=== PATIENT | female | born 1980 | race Caucasian/White ===

== ENCOUNTER 2020-09-18 11:26 | Emergency (ER) | payer OTHER, SELFPAY ==
[2020-09-18] VITALS (7 sets, daily range): BP systolic 123–150; BP diastolic 69–101; PULSE 72–98; RESP 16–18; TEMP 35.5; O2SAT 99–100
--- NOTE | ~2020-09-18 | US_ITS ---
EXAMINATION: US pelvic complete w TV DATE: 09/18/2020 13:06 INDICATION: Vaginal bleeding and right adnexal pain TECHNIQUE: Multiple transabdominal and endovaginal sonographic images of the pelvis were obtained. COMPARISON: None. FINDINGS: The uterus measures 9.3 x 6.3 x 4.9 cm. The endometrial complex measures 8 mm in thickness. 1.8 cm h ypoechoic lesion in the posterior fundus most likely representing a small uterine fibroid. 5 mm anech oic nabothian cysts at the cervix. 2-3 mm hyperechoic focus along the posterior margin of the endocer vical canal which could represent clot or calcification. The right ovary measures 2.3 x 1.8 x 2.2 cm. The left ovary measures 1.9 x 1.9 x 1.6 cm. Vascular flow identified in both ovaries on color Dopple r. There is no free fluid in the pelvis. IMPRESSION: 1. 1.8 cm hypoechoic likely fibroid in the posterior uterine fundus. 2. Small nabothian cyst at the cervix and nonspecific 2-3 mm hyperechoic focus along the endocervical canal potentially representing small amount of clot or calcification. Reviewed, dictated and finalized at location A. IMPRESSION: 1. 1.8 cm hypoechoic likely fibroid in the posterior uterine fundus. 2. Small nabothian cyst at the cervix and nonspecific 2-3 mm hyperechoic focus along the endocervical canal potentially representing small amount of clot or c alcification.
[2020-09-18] MEDS: SODIUM CHLORIDE 0.9% IV 1,000 ML 999 ML IV CONT (12:14)
--- NOTE | 2020-09-18 12:14 | ED.FEMALEGU ---
HPI - Female Genitourinary General Chief complaint: Vaginal Bleeding Stated complaint: vaginal bleeding Time Seen by Provider: 09/18/20 11:39 History of Present Illness HPI Narrative: Patient is a 40-year-old female who presents to the ER with vaginal bleeding. She is currently on day 3 of her period. She reports she typically has heavy periods but today is much worse. She is soaking through a super tampon every 45 minutes and also passing large clots from her vagina. No chest pain or shortness of breath. No loss consciousness. She is not having any dizziness. Does not take blood thinners. Patient reports right adnexal discomfort going to her back. Concerned she may have a cyst. Related Data Allergies Allergy/AdvReac Type Severity Reaction Status Date / Time No Known Allergies Allergy Verified 09/18/20 11:38 Review of Systems Review of Systems: All systems reviewed & are unremarkable except as noted in HPI and below Constitutional: Constitutional: Denies chills and Denies fatigue Respiratory: Respiratory: Denies cough and Denies dyspnea Gastrointestinal: Gastrointestinal: Denies abdominal pain, Denies diarrhea, Denies nausea and Denies vomiting Genitourinary: Genitourinary: Reports abnormal vaginal bleeding, Denies nocturia, Denies dysuria, Reports pelvic pain and Denies vaginal discharge Musculoskeletal: Musculoskeletal: Reports back pain and Denies muscle cramps PMFSH Past Medical History Medical History (Updated 09/18/20 @ 14:25 by Yehuda Jacinto MD) PCOS (polycystic ovarian syndrome) Surgical History Surgical History (Updated 09/18/20 @ 12:20 by Yehuda Jacinto MD) No pertinent past surgical history Social History Social History (Updated 09/18/20 @ 12:20 by Yehuda Jacinto MD) Smoking status: Never smoker Exam Narrative: Exam Narrative: GENERAL: Well-appearing, well-nourished, and in no acute distress. HEAD: Normocephalic, atraumatic. ENT: Mucous membranes moist. CHEST: Clear to auscultation. No respiratory distress. HEART: Regular rate and rhythm. Normal peripheral pulses. ABDOMEN: Soft, nontender, nondistended. : Normal external genitalia. Vaginal vault with small amount of dark blood without clot. Redundant tissue obscures visualization of cervix. No vaginal discharge. EXTREMITIES: Normal range of motion. No edema. NEURO: Alert and oriented x3. Course Course Emergency Course: Patient informed of results. Likely having heavier bleeding due to her fibroid. Recommend follow-up with implementation services analyst and we will provide her with the name of our on-call physician. Vital Signs Vital signs: Vital Signs Temperature 96 F L 09/18/20 11:34 Pulse Rate 89 09/18/20 11:34 Respiratory Rate 16 09/18/20 11:34 Blood Pressure 142/82 H 09/18/20 11:34 Pulse Oximetry 100 09/18/20 11:34 Temperature 96 F L 09/18/20 11:34 Pulse Rate 81 09/18/20 14:10 Respiratory Rate 18 09/18/20 14:10 Blood Pressure 139/87 09/18/20 14:10 Pulse Oximetry 100 09/18/20 14:10 MDM - Female Genitourinary Lab Data Result diagrams: 09/18/20 12:16 09/18/20 12:16 Labs: Lab Results 09/18/20 09/18/20 Range/Units 12:16 12:16 WBC 8.1 (4.5-10.0) K/mm3 RBC 4.45 (4.2-5.4) M/mm3 Hgb 13.1 (12.0-15.0) g/dL Hct 39.6 (37.0-47.0) % MCV 89.0 (80-100) fl MCH 29.4 (26-34) pg MCHC 33.1 (32-36) g/dl RDW 13.0 (11.5-14.5) % Plt Count 268 (150-375) k/mm3 MPV 8.2 (7.4-10.4) fl Immature Gran % (Auto) 0.2 (0-0.5) % Neut % (Auto) 62.2 (45.5-73.1) % Lymph % (Auto) 28.9 (18.3-44.2) % Brooke % (Auto) 6.6 (2.6-8.5) % Eos % (Auto) 1.6 (0-4.4) % Baso % (Auto) 0.5 (0.2-1.2) % Lymph # (Auto) 2.33 (0.9-3.2) K/mm3 Brooke # (Auto) 0.5 (0.1-0.6) K/mm3 Eos # (Auto) 0.1 (0-0.3) K/mm3 Baso # (Auto) 0.0 (0.0-0.1) K/mm3 Abs Immat Gran (auto) 0.02 (0.00-0.031) K/mm3 Absolute Neuts (auto) 5.0 (1.3-6.7) K
[2020-09-18] MEDS: KETOROLAC 30 MG/ML VIAL (*BKC) IV PUSH (12:15)
[2020-09-18 12:26] LABS: Basophils Percent Auto 0.5 % (0.2-1.2); Eosinophils Absolute Auto 0.1 K/mm3 (0-0.3); Eosinophils Percent Auto 1.6 % (0-4.4); Hematocrit 39.6 % (37.0-47.0); Hemoglobin 13.1 g/dL (12.0-15.0); Immature Granulocyte Absolute 0.02 K/mm3 (0.00-0.031); Immature Granulocyte Percent A 0.2 % (0-0.5); Lymphocytes Absolute Auto 2.33 K/mm3 (0.9-3.2); Lymphocytes Percent Auto 28.9 % (18.3-44.2); Mean Corpuscular HGB Conc 33.1 g/dl (32-36); Mean Corpuscular Hemoglobin 29.4 pg (26-34); Mean Platelet Volume 8.2 fl (7.4-10.4); Monocytes Absolute Auto 0.5 K/mm3 (0.1-0.6); Monocytes Percent Auto 6.6 % (2.6-8.5); Neutrophils Percent Auto 62.2 % (45.5-73.1); Platelet Count Result 268 k/mm3 (150-375); Red Blood Count 4.45 M/mm3 (4.2-5.4); White Blood Count 8.1 K/mm3 (4.5-10.0)
[2020-09-18 12:42] LABS: Anion Gap 3 mmol/L (8-16); Blood Urea Nitrogen 11 mg/dL (7-17); Calcium 8.6 mg/dL (8.4-10.2); Carbon Dioxide 28 mmol/L (22-30); Chloride 108 mmol/L (98-107); Estimated CRCL calculation 135 ml/min; Estimated Glomerular Filt Rate > 60; Glucose 103 mg/dL (65-105); Potassium 4.3 mmol/L (3.4-5.0); Sodium 139 mmol/L (137-145)
--- NOTE | 2020-09-18 12:43 | PC.NURSE ---
Pt in ultrasound.
--- NOTE | 2020-09-18 14:10 | PC.NURSE ---
RN assisting with pelvic exam.
== END 2020-09-18 15:11 | disposition home or self-care (01) ==
PROVIDERS: Emergency Provider Emergency Medicine; PCP Family Medicine
DX: D25.9 Leiomyoma of uterus, unspecified (principal); N92.0 Excessive and frequent menstruation with regular cycle; N88.8 Other specified noninflammatory disorders of cervix uteri
CPT/HCPCS: 36415; 76830; 76856; 80048; 85025; 96361; 96374; 99284; J1885; J7030

== ENCOUNTER → 2020-10-20 02:08 | Outpatient (CLI) | payer OTHER, SELFPAY ==
[2020-10-20 19:23] LABS: SARS-CoV-2 RNA PCR Negative
== END ==
PROVIDERS: Student in an Organized Health Care Education/Training Program; PCP Family Medicine; Visit Provider Obstetrics & Gynecology
DX: Z01.812 Encounter for preprocedural laboratory examination (principal); Z20.822 Contact with and (suspected) exposure to COVID-19
CPT/HCPCS: C9803; U0003; U0005

== ENCOUNTER 2020-10-20 08:57 | Outpatient (CLI) | payer OTHER, SELFPAY ==
--- NOTE | 2020-10-20 13:15 | ECG_ITS ---
Measurements Intervals [place] Rate: 74 P: 34 KS: 161 QRS: 23 QRSD: 91 T: 13 QT: 364 QTc: 404 Interpretive Statements SINUS RHYTHM LOW QRS VOLTAGE IN PRECORDIAL LEADS DELAYED PRECORDIAL R/S TRANSITION BORDERLINE ECG Electronically Signed On 10-20-2020 9:47:32 CDT by Ethan Vargas D.O.
== END 2020-10-20 08:58 | disposition home or self-care (01) ==
LOC: ANHSURGERY 09:02
PROVIDERS: PCP Family Medicine; Visit Provider Student in an Organized Health Care Education/Training Program
DX: Z01.810 Encounter for preprocedural cardiovascular examination (principal); E78.5 Hyperlipidemia, unspecified
CPT/HCPCS: 93005

== ENCOUNTER 2020-10-23 02:20 | Day surgery (SDC) | payer OTHER, SELFPAY ==
[2020-10-15 15:45] VITALS: BMI 42.2
--- NOTE | 2020-10-22 09:08 | WPDANESEPPF ---
Anes - Initial Pre Proc Eval Procedure: Operation Date: 10/23/20 07:30 Proposed Procedures p Hysteroscopy Dilation and Curettage Raquel Ablation - Sheila Purvis MD Date/Time: 10/22/20 09:08 Surgeon: Sheila Purvis MD Pre Op Diagnosis: excessive and frequent menstruation with cycle Patient Data Age: 40 Gender: F Height: 1.78 m Weight: 133.36 kg Allergies Allergy/AdvReac Type Severity Reaction Status Date / Time amoxicillin [From Augmentin] AdvReac Diarrhea Verified 10/15/20 15:52 clavulanic acid AdvReac Diarrhea Verified 10/15/20 15:52 [From Augmentin] duloxetine [From Cymbalta] AdvReac Dizziness Verified 10/15/20 15:52 Home Medications Medication Instructions Recorded Confirmed Type atorvastatin 80 mg tablet 80 mg PO DAILY 09/30/20 10/15/20 History bupropion HCl 150 mg 24 hr tablet, 150 mg PO HS 09/30/20 10/15/20 History extended release cetirizine 10 mg capsule 10 mg PO DAILY PRN 09/30/20 10/15/20 History escitalopram oxalate 20 mg tablet 20 mg PO HS 09/30/20 10/15/20 History fluticasone propionate 50 1 spray INTRANASAL DAILY 09/30/20 10/15/20 History mcg/actuation nasal spray,suspension levothyroxine 75 mcg capsule 75 mcg PO DAILY 09/30/20 10/15/20 History multivitamin 1 tablet PO DAILY 09/30/20 10/15/20 History omega-3 fatty acids 1,000 mg 1,000 mg PO DAILY 09/30/20 10/15/20 History capsule Patient hx anesthesia problems: none Family hx anesthesia problems: none PMFSH Past Medical History Medical History Anxiety Depression Hyperlipidemia Hypothyroidism PCOS (polycystic ovarian syndrome) Vaginal delivery x3 Surgical History Surgical History History of ankle surgery , pins Family History Family History Father Alcoholism Hypertension Depression Mother Hypertension Anxiety Sibling Anxiety brother Thyroid disorder sister Grandparent Breast cancer Heart disease Hypertension Son HELLP syndrome Social History Social History Years smoked: 4 Smoking status: Former smoker Alcohol intake: current Drinks per week: 4 Substance use: current Last use: 2006 Living arrangements: with family Gender identity (if verbalized by the patient): Female Spiritual care concerns: No Anes - Eval Final PreProcedure Day of Procedure 10/22/20 09:08 Patient weight: morbidly obese Heart: regular rate and rhythm Lungs: clear to auscultation and normal air movement Airway: Mallampati scale class II Neurological: alert and oriented Last oral intake: >/= 8 hours ASA classification: III Emergent: no Anesthetic plan: proceed Anesthesia type and monitoring: general GIVS and standard monitoring Informed Consent: The patient's anesthetic plan and its attendant risks and benefits were discussed with the patient/family/POA. Questions were solicited and answers provided to the satisfaction of the patient/family/POA.
--- NOTE | 2020-10-22 11:49 | PM.IMHP ---
H&P: HPI History of Present Illness Date/Time: 10/22/20 11:49 Patient is a 40 year old woman who presented to the gynecology office in 09/2020 with complaints of menorrhagia. Patient states that cycles last approximately 5 days and are the heaviest on cycle days 2 and 3. Additionally, with her last cycle, the patient experienced an unusual increase in heavy bleeding. She stated that she was saturating a super tampon every 45 minutes and reported the passage of several blood clots. She also reports intermittent cramping with cycles. She was evaluated in the emergency department and a pelvic ultrasound was performed that showed uterus measuring 9.3 x 6.3 x 4.9 cm with a 1.8 cm posterior fundal fibroid. Management options were discussed with patient and decision was made to proceed with hysteroscopy, dilation and curettage and endometrial ablation as initial attempt to alleviate symptoms. Patient does not desire future fertility. had a vasectomy. Chief Complaint: Menorrhagia Review of Systems Review of Systems: All systems reviewed & are unremarkable except as noted in HPI and below Constitutional: Constitutional: Reports as per HPI, Reports no additional constitutional complaints, Denies chills, Denies fever(s), Denies headache(s) and Denies night sweats Eyes: Eyes: Reports as per HPI and Reports no additional eye complaints ENT: Reports system reviewed and no additional complaints, except as documented, Reports as per HPI, Reports Normal hearing present and Denies headache(s) Cardiovascular: Cardiovascular: Reports as per HPI, Reports no additional cardiovascular complaints, Denies chest pain and Denies dyspnea Respiratory: Respiratory: Reports as per HPI, Reports no additional respiratory complaints, Denies cough and Denies dyspnea Gastrointestinal: Gastrointestinal: Reports as per HPI, Reports no additional gastrointestinal complaints, Denies abdominal pain, Denies change in bowel habits, Denies change in stool character, Denies nausea and Denies vomiting Genitourinary: Genitourinary: Reports no additional female genitourinary complaints, Reports as per HPI, Denies abnormal vaginal bleeding, Denies genital lesions, Reports menorrhagia, Denies hot flashes, Denies dyspareunia, Denies pelvic pain, Denies sexual dysfunction, Denies urinary incontinence, Denies vaginal discharge, Denies vaginal dryness and Denies vaginal odor Musculoskeletal: Musculoskeletal: Reports no additional musculoskeletal complaints and Reports as per HPI Integumentary/Breasts: Skin/Breast: Reports system reviewed and no additional complaints, except as docu, Reports as per HPI, Denies breast pain and Denies nipple discharge Neurologic: Reports system reviewed and no additional complaints, except as documented, Reports as per HPI, Reports Normal hearing present and Denies headache(s) Psychiatric: Psychiatric: Reports no additional psychiatric complaints, Reports as per HPI, Denies anxiety and Denies depression Endocrine: Endocrine: Reports no additional endocrine complaints and Reports as per HPI Hematologic/Lymphatic: Hematologic/Lymphatic: Reports no additional hematologic/lymphatic complaints and Reports as per HPI Allergic/Immunologic: Allergic/Immunologic: Reports no additional allergic/immunologic complaints and Reports as per HPI PMFSH Past Medical History Medical History Anxiety Depression Hyperlipidemia Hypothyroidism PCOS (polycystic ovarian syndrome) Vaginal delivery x3 Surgical History Surgical History History of ankle surgery , pins Family History Family History Father Alcoholism Hypertension Depression Mother Hypertension Anxiety Sibling Anxiety brother Thyroid disorder sister Grandparent Breast cancer Heart disease Hypertension S
[2020-10-23 06:26] VITALS: BP 122/76; PULSE 76; RESP 14; TEMP 36.1; O2SAT 96
[2020-10-23] MEDS: ACETAMINOPHEN 500 MG TABLET 1000 MG PO (06:50)
[2020-10-23] MEDS: LACTATED RINGERS 1,000 ML 30 ML IV CONT ×2 (06:58→08:07)
--- NOTE | 2020-10-23 07:19 | WPDHPUPDATE1 ---
History and Physical Update Update Date/Time: 10/23/20 07:19 History and Physical has been reviewed, including an updated exam of the patient. There are NO changes in the patient's condition. Risks, benefits, and alternatives have been discussed and questions answered. Patient agrees to proceed with procedure.
--- NOTE | 2020-10-23 07:22 | P.OP_ITS ---
Procedure Note - Detailed Date of procedure: 10/23/20 Pre-op diagnosis: excessive and frequent menstruation with cycle Post-op diagnosis: same Procedure performed: Hysteroscopy, dilation and curettage, endometrial ablation with Raquel Description of procedure: The patient was taken to the operating room where she self-transferred to the operating room table. She was placed in dorsal supine position. Anesthesia was administered and found to be adequate. The patient was repositioned in dorsal lithotomy position with the use of Bryn stirrups. Patient was visibly on menses and a large amount of blood and clot was evacuated from her vagina. She was prepped and draped in usual sterile fashion. A red rubber catheter was used to drain the bladder of 75 cc of concentrated yellow urine. A bivalve speculum was inserted into the vagina. The cervix was well visualized. The anterior lip of the cervix was grasped with a single-tooth tenaculum. A paracervical block was performed with 1% plain lidocaine. 5 cc of lidocaine was administered on either side for a total of 10 cc. The uterus was then sounded to 10 cm. The cervix was serially dilated to accommodate a hysteroscope. The hysteroscope was introduced into the endometrial cavity. A ge neral survey was performed. Endometrial cavity was somewhat obscured with blood, however, a large amount of fluffy endometrial tissue was visualized. The cavity was flushed with saline and suctioned with hysteroscope, which did help some with visualization. Bilateral tubal ostia were visualized. A few pictures were taken. The hysteroscope was removed. A medium-size rigid curette was used to perform a curettage. All quadrants of the endometrial cavity were explored. A moderate amount of tissue was obtained and prepared to be sent to pathology for analysis. The Arquel endometrial ablation device was then opened on the sterile field. The appropriate settings were input on the hand-held device and the array was introduced into the endometrial cavity and deployed. The cervical balloon was insufflated. An integrity check was completed and passed by the Raquel console. After the integrity check was passed successfully, the ablation procedure started automatically and ran for the preset time of 120 seconds. After completion of the ablation procedure, the array was collapsed and the cervical balloon was desufflated. The device was removed. The tenaculum was removed from the anterior lip of the cervix. A minimal amount of oozing was noted from the tenaculum puncture sites. These sites were made hemostatic with silver nitrate. Excellent hemostasis was noted. The remainder of the vagina was cleansed and dried and the speculum was removed. The patient was cleansed and dried and taken out of the dorsal lithotomy position. She was awakened from anesthesia without difficulty and transferred to the recovery room in stable condition. The patient tolerated the procedure well. All sponge, lap, and instrument counts were correct at the end of the procedure. Anesthesia: MAC Surgeon: Sheila Purvis MD Filter Plant Supervisor: None Estimated blood loss (mL): 10 IV fluids (mL): 1,200 Urine output (mL): 75 Drains: No Packing: No Pathology: yes (endometrial curettings) Complications: No immediate complications Condition: stable Disposition: same day Findings: Hysteroscopic fluid: 800cc in/ 720cc out Intraoperative findings: large amount of blood and fluffy tissue within endometrial cavity, otherwise, visualized portion of cavity appeared normal, bilateral tubal ostia seen
[2020-10-23 08:07] VITALS: BP 138/74; PULSE 78; RESP 14; O2SAT 93
[2020-10-23 08:35] VITALS: BP 136/81; PULSE 74
== END 2020-10-23 09:05 | disposition home or self-care (01) ==
PROVIDERS: PCP Family Medicine; Visit Provider Student in an Organized Health Care Education/Training Program
PROC: 0U5B8ZZ Destruction of Endometrium, Via Natural or Artificial Opening Endoscopic (ICD-10-PCS; CPT 58563; principal; 2020-10-23 07:30)
DX: N92.0 Excessive and frequent menstruation with regular cycle (principal); E03.9 Hypothyroidism, unspecified; F41.8 Other specified anxiety disorders; E78.5 Hyperlipidemia, unspecified; E28.2 Polycystic ovarian syndrome; Z87.891 Personal history of nicotine dependence; E66.01 Morbid (severe) obesity due to excess calories; Z68.41 Body mass index [BMI] 40.0-44.9, adult
CPT/HCPCS: 58563; 88305; 93005; A9270; C9803; J1100; J1885; J2250; J2405; J2704; J3010; J7030; J7120; U0003; U0005

== ENCOUNTER 2022-09-02 14:16 | Outpatient (CLI) | payer OTHER, SELFPAY ==
--- NOTE | 2022-09-02 15:34 | ECG_ITS ---
Measurements Intervals [place] Rate: 91 P: 37 DE: 155 QRS: 33 QRSD: 89 T: 43 QT: 363 QTc: 448 Interpretive Statements SINUS RHYTHM LOW QRS VOLTAGE IN PRECORDIAL LEADS PATTERN CONSISTENT WITH PULMONARY DISEASE BASELINE ARTIFACT- I, II, III, AVR, AVL, AVF, V3-V6 BORDERLINE ECG COMPARED TO ECG 10/20/2020 09:11:15 NO SIGNIFICANT CHANGES Electronically Signed On 09-02-2022 15:57:19 CDT by Ethan Vargas D.O.
== END 2022-09-02 14:17 | disposition home or self-care (01) ==
PROVIDERS: PCP Family Medicine; Visit Provider Surgery
DX: Z01.818 Encounter for other preprocedural examination (principal); E78.5 Hyperlipidemia, unspecified
CPT/HCPCS: 93005

== ENCOUNTER 2022-09-07 00:35 | Day surgery (SDC) | payer OTHER, SELFPAY ==
[2022-08-29 14:46] VITALS: BMI 40.4
--- NOTE | 2022-08-29 14:52 | PC.NURSE ---
Report to the Outpatient Waiting Room, entrance under the green pavilion located off [facility], at time 9:00 on date 09/07/22. Planned Procedure Time: 11:00. Time changes happen often and if your time is changed the preop area will call you the afternoon before. - You and your visitor will be asked to self-screen and do not enter if you have any COVID symptoms. - Only one visitor is requested with a max of two and NO children visitors are allowed at this time. - The patient visitor may be requested to leave or wait in car when not with patient due to distancing restrictions. - A mask is optional within the hospital at this time. Patients may ONLY have clear liquids ON WEDNESDAY 09/06. - No food OR DRINK AFTER midnight Take the following medications with a SIP of water the morning of surgery: LEVOTHYROXINE, BUPROPION DO NOT STOP ANY OF YOUR OTHER PRESCRIPTION MEDICATIONS PRIOR TO SURGERY?EXCEPT THE FOLLOWING Medications to discontinue per physician: VITAMINS/SUPPLEMENTS Date to take last dose: 09/03/22 FLEETS ENEMA - NIGHT BEFORE AND MORNING OF SURGERY DULCOLAX 5MG NIGHT BEFORE SURGERY Please no make-up, nail lithuanian, hairspray, perfume, deodorant, or body powder the day of surgery. No jewelry (including any body piercings) or valuables the day of surgery, leave them at home. Please take a shower or bath the night before, or the morning of, surgery with an antibacterial soap. Wear comfortable, loose fitting clothing. - Jewelry must be removed prior to entering the operating room. Rings and piercings that are not removed may be cut off. - The hospital will not accept responsibility for valuables. - Please leave all valuables, including medications, at home the day of surgery. If you are going home after surgery, a licensed vibratory pile driver must drive you home. - NO public transportation without another adult if you receive anesthesia. - We recommend that an adult stay with you for 24 hours following discharge. - We also recommend that you do not drive, make important decision, drink alcoholic beverages, or take any drugs that were not prescribed by your health care provider for at least 24 hours after your discharge time. Follow any additional instructions given to you from your surgeon. If you or anyone in your household have experienced Covid symptoms in the past week, please notify your surgeon or the nurse liaison at the phone number below for possible testing. Telephone instructions given to DEBRA WHEELER and asked if any additional questions and then verbalized understanding. Patient advised to call surgeon office or pre surgery nurse liaison [phone] if any additional questions.
[2022-09-07] VITALS (9 sets, daily range): BP systolic 130–139; BP diastolic 32–83; PULSE 79–94; RESP 13–18; TEMP 36.1–36.5; O2SAT 97–100
--- NOTE | 2022-09-07 09:09 | WPDHPUPDATE1 ---
History and Physical Update Update Date/Time: 09/07/22 09:09 History and Physical has been reviewed, including an updated exam of the patient. There are NO changes in the patient's condition. Risks, benefits, and alternatives have been discussed and questions answered. Patient agrees to proceed with procedure.
--- NOTE | 2022-09-07 09:45 | WPDANESEPPF ---
Anes - Initial Pre Proc Eval Procedure: Operation Date: 09/07/22 11:00 Proposed Procedures p Excision Two Complex Internal and External Hemorrhoids, Rubber Band Ligation Internal Hemorrhoids - Manjeet Rider MD Date/Time: 09/07/22 09:45 Surgeon: Manjeet Rider MD Pre Op Diagnosis: Int and Ext Hemorrhoids with complication Patient Data Age: 42 Gender: F Height: 1.78 m Weight: 127.92 kg Allergies Allergy/AdvReac Type Severity Reaction Status Date / Time amoxicillin [From Augmentin] AdvReac Diarrhea Verified 09/07/22 09:39 clavulanic acid AdvReac Diarrhea Verified 09/07/22 09:39 [From Augmentin] duloxetine [From Cymbalta] AdvReac Dizziness Verified 09/07/22 09:39 Home Medications Medication Instructions Recorded Confirmed Type atorvastatin 80 mg tablet 80 mg PO DAILY 09/30/20 09/07/22 History bupropion HCl 150 mg 24 hr tablet, 150 mg PO DAILY 09/30/20 09/07/22 History extended release cetirizine 10 mg capsule (Allergy 10 mg PO DAILY PRN Allergy Symptoms 09/30/20 09/07/22 History Relief (cetirizine)) escitalopram oxalate 20 mg tablet 20 mg PO HS 09/30/20 09/07/22 History fluticasone propionate 50 1 spray intranasal DAILY 09/30/20 09/07/22 History mcg/actuation nasal spray,suspension (Allergy Relief (fluticasone)) levothyroxine 75 mcg capsule 75 mcg PO DAILY 09/30/20 09/07/22 History multivitamin 1 tablet PO DAILY 09/30/20 09/07/22 History atomoxetine 80 mg capsule 80 mg PO DAILY 08/25/22 09/07/22 History (Strattera) psyllium husk 3.4 gram/5.4 gram 1 tbsp PO DAILY 08/29/22 09/07/22 History oral powder (Metamucil) Patient hx anesthesia problems: none Family hx anesthesia problems: none Results Review: All pre-operative results and documents have been reviewed as part of the pre-operative evaluation. [facility] Past Medical History Medical History Anxiety Depression Hyperlipidemia Hypothyroidism PCOS (polycystic ovarian syndrome) Status post hysteroscopy Vaginal delivery x3 Surgical History Surgical History History of ankle surgery , pins History of dilation and curettage 10/23/20 History of endometrial ablation 10/23/20 Family History Family History Father Alcoholism Hypertension Depression Mother Hypertension Anxiety Sibling Anxiety brother Thyroid disorder sister Grandparent Breast cancer Heart disease Hypertension Son HELLP syndrome Social History Social History Smoking packs per day: 0.5 Smoking cigarettes per day: 10.0 Years smoked: 4 Smoking pack-years: 2.00 Smoking status: Former smoker Tobacco type: cigarettes Smoking end date: 06/19/10 Alcohol intake: current Drinks per week: 4 Substance use: current Substance use type: marijuana Last use: 2006 Living arrangements: with family Occupation/Education: 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 Informed Consent: The patient's anesthetic plan and its attendant risks and benefits were discussed with the patient/family/POA. Questions were solicited and answers provided to the satisfaction of the patient/family/POA.
[2022-09-07] MEDS: LACTATED RINGERS 1,000 ML 30 ML IV CONT (09:57)
[2022-09-07] MEDS: ACETAMINOPHEN 500 MG TABLET 1000 MG PO (09:59)
[2022-09-07] MEDS: KETOROLAC 15 MG/ML VIAL (*BKC) IV PUSH (10:01)
[2022-09-07] MEDS: ceFAZolin 3 GM/D5W 100 ML 100 ML IVPB (10:05)
--- NOTE | 2022-09-07 11:28 | W.PM.PROC2 ---
Procedure Note - Detailed Date of Procedure 09/07/22 Pre-op Diagnosis Int and Ext Hemorrhoids with complication Post-op Diagnosis Same Procedure Performed Excision left lateral internal and external hemorrhoids, excision right posterior internal and external hemorrhoids, rubber-band ligation right anterior internal hemorrhoid Surgeon Manjeet Rider MD Senior Database Administrator Alysha Rodrigues [facility] Anesthesia General and Local (0.5% Marcaine with Exparel) Indications Patient is a 42-year-old woman who has prolapsed bleeding internal and external hemorrhoids. Exam in the office showed all 3 hemorrhoidal complexes to be involved. She is taken to surgery now for hemorrhoidectomy. Findings The left lateral and right posterior complexes were the largest. The right anterior complex was smaller and only the internal hemorrhoid was addressed with rubber-band ligation. Description of Procedure The patient was taken to surgery and induced into general anesthesia. She was then turned to prone dominic-knife position. The buttocks were taped apart. Prep and drape was carried out. Hill-Agustin anoscope were used to examine the anal canal. Findings were as above. I then infiltrated local anesthesia. A total of 40 cc was used. 20 cc was used deep subdermal. 20 cc was used intra sphincteric. We then started with the left lateral complex. This complex was exposed. The internal and external hemorrhoids were excised. I then closed the wound with subcuticular interrupted 4-0 Vicryl skin suture. Additionally some interrupted 4-0 chromic sutures were placed. This wound was then hemostatic. I went to the patient's right side and we exposed the right posterior complex. In similar fashion, the internal and external hemorrhoids were excised. Some hemostasis was achieved with cautery. Subcuticular interrupted 4-0 Vicryl sutures were then placed. A few 4-0 chromic skin stitches were placed to achieve good hemostasis. Finally the right anterior complex was addressed. Not wanting to excise another complex for fear of stricture, I rubber-band ligated the associated internal hemorrhoid in the right anterior complex. The smaller external hemorrhoid was left in place. I reinspected the anal canal and both of the excision sites were hemostatic. The rubber band was secure on the internal hemorrhoid. We dressed the anal area with Xeroform gauze fluffs and Promise panties. The patient was returned to a supine position. She was awakened and taken to recovery in good condition. Sponge and needle counts were correct x2. Estimated Blood Loss -10 Drains No Packing No Pathology Yes (Left lateral complex internal and external hemorrhoids, right posterior complex internal and external hemorrhoids) Complications No immediate complications Condition Stable Disposition PACU [facility] Billing Surgery - Charge Forward: Surgery Billing (Complex excision internal and external hemorrhoids, rubber-band ligation internal hemorrhoids)
== END 2022-09-07 13:18 | disposition home or self-care (01) ==
PROVIDERS: PCP Family Medicine; Visit Provider Surgery
PROC: (CPT 46260; principal; 2022-09-07 11:00)
DX: K64.8 Other hemorrhoids (principal); K64.4 Residual hemorrhoidal skin tags; E78.5 Hyperlipidemia, unspecified; E03.9 Hypothyroidism, unspecified; F41.9 Anxiety disorder, unspecified; F32.A Depression, unspecified; Z87.891 Personal history of nicotine dependence; E66.01 Morbid (severe) obesity due to excess calories; Z68.39 Body mass index [BMI] 39.0-39.9, adult
CPT/HCPCS: 46260; 88304; 93005; A9270; C9290; J0330; J0690; J1100; J1885; J2250; J2405; J2704; J3010; J7120

== ENCOUNTER 2023-02-08 00:34 | Day surgery (SDC) | payer OTHER, SELFPAY ==
[2023-02-01 13:20] VITALS: BMI 39.8
--- NOTE | 2023-02-01 13:29 | PC.NURSE ---
Report to the Outpatient Waiting Room, entrance under the green pavilion located off [facility], at time _0800 on date 02/08/23_. Planned Procedure Time: _1000__. Time changes happen often and if your time is changed the preop area will call you the afternoon before. - You and your visitor will be asked to self-screen and do not enter if you have any COVID symptoms. - A mask is optional within the hospital at this time. Patients may have clear liquids (water, carbonated beverages, clear teas, apple juice) until 3 hours prior to surgery with a maximum of 20 ounces. - No food from midnight until time of surgery - Infants may have breast milk until 4 hours before surgery, formula 6 hours prior to surgery. - Children will be allowed to drink immediately following surgery. If applicable, please bring a bottle or sippy cup to assist with drinking. Juice, water, soda, and popsicles are readily available. For infants on formula, please bring formula the day of surgery. Pacifiers are allowed. Take the following medications with a SIP of water the morning of surgery: ___ATOMOXETINE, LEVOTHYROXINE, BUPROPION DO NOT STOP ANY OF YOUR OTHER PRESCRIPTION MEDICATIONS PRIOR TO SURGERY ?EXCEPT THE FOLLOWING Medications to discontinue per physician VITAMINS Date to take last dose__02/05/23___ Please no make-up, nail tristanian, hairspray, perfume, deodorant, or body powder the day of surgery. No jewelry (including any body piercings) or valuables the day of surgery, leave them at home. Please take a shower or bath the night before, or the morning of, surgery with HIBICLENS antibacterial soap. Wear comfortable, loose fitting clothing. Children are encouraged to wear pajamas. - Jewelry must be removed prior to entering the operating room. Rings and piercings that are not removed may be cut off. - The hospital will not accept responsibility for valuables. - Please leave all valuables, including medications, at home the day of surgery. FOLLOW PRE OP PREP INSTRUCTIONS GIVEN TO YOU BY YOUR SURGEONS OFFICE. If you are going home after surgery, a licensed grain combine driver must drive you home. - NO public transportation without another adult if you receive anesthesia. - We recommend that an adult stay with you for 24 hours following discharge. - We also recommend that you do not drive, make important decision, drink alcoholic beverages, or take any drugs that were not prescribed by your health care provider for at least 24 hours after your discharge time. For Pediatric surgeries, we recommend two adults accompany the child home. Follow any additional instructions given to you from your surgeon. If you or anyone in your household have experienced Covid symptoms in the past week, please notify your surgeon or the nurse liaison at the phone number below for possible testing. Telephone instructions given to __PATIENT___and asked if any additional questions and then verbalized understanding. Patient advised to call surgeon office or pre surgery nurse liaison [phone] if any additional questions.
[2023-02-08] VITALS (10 sets, daily range): BP systolic 125–150; BP diastolic 58–85; PULSE 85–95; RESP 13–18; TEMP 36.6–36.8; O2SAT 98–100
[2023-02-08] MEDS: ACETAMINOPHEN 500 MG TABLET 1000 MG PO (08:25)
--- NOTE | 2023-02-08 08:43 | WPDHPUPDATE1 ---
History and Physical Update Update Date/Time: 02/08/23 08:43 History and Physical has been reviewed, including an updated exam of the patient. There are NO changes in the patient's condition. Risks, benefits, and alternatives have been discussed and questions answered. Patient agrees to proceed with procedure.
[2023-02-08] MEDS: LACTATED RINGERS 1,000 ML 30 ML IV CONT (08:52)
[2023-02-08] MEDS: KETOROLAC 15 MG/ML VIAL (*BKC) IV PUSH (09:45)
--- NOTE | 2023-02-08 10:07 | WPDANESEPPF ---
Anes - Initial Pre Proc Eval Procedure: Operation Date: 02/08/23 10:00 Proposed Procedures p Proctosigmoidoscopy, Hemorrhoidectomy - Manjeet Rider MD Date/Time: 02/08/23 10:07 Surgeon: Manjeet Rider MD Pre Op Diagnosis: rectal bleeding, internal & external hemorrhoids Patient Data Age: 42 Gender: F Height: 1.78 m Weight: 122.2 kg Last Vital Signs Temp 36.8 C 02/08/23 08:44 Pulse 91 02/08/23 08:44 Resp 16 02/08/23 08:44 BP 132/82 02/08/23 08:44 Pulse Ox 100 02/08/23 08:44 O2 Del Method Room Air 02/08/23 08:44 Allergies Allergy/AdvReac Type Severity Reaction Status Date / Time amoxicillin [From Augmentin] AdvReac Diarrhea Verified 02/08/23 08:22 clavulanic acid AdvReac Diarrhea Verified 02/08/23 08:22 [From Augmentin] duloxetine [From Cymbalta] AdvReac Dizziness Verified 02/08/23 08:22 Home Medications Medication Instructions Recorded Confirmed Type atorvastatin 80 mg tablet 80 mg PO DAILY 09/30/20 02/08/23 History bupropion HCl 150 mg 24 hr tablet, 150 mg PO DAILY 09/30/20 02/08/23 History extended release cetirizine 10 mg capsule (Allergy 10 mg PO DAILY PRN Allergy Symptoms 09/30/20 02/08/23 History Relief (cetirizine)) escitalopram oxalate 20 mg tablet 20 mg PO HS 09/30/20 02/08/23 History fluticasone propionate 50 1 spray intranasal DAILY PRN 09/30/20 02/01/23 History mcg/actuation nasal ALLERGIES spray,suspension (Allergy Relief (fluticasone)) levothyroxine 75 mcg capsule 75 mcg PO DAILY 09/30/20 02/08/23 History multivitamin 1 tablet PO DAILY 09/30/20 02/08/23 History atomoxetine 80 mg capsule 80 mg PO DAILY 08/25/22 02/08/23 History (Strattera) mineral oil 15 ml PO BID #473 mL 09/07/22 02/08/23 Rx psyllium husk 3.4 gram/5.4 gram 1 tbsp PO BID #660 grams 09/07/22 02/08/23 Rx oral powder (Metamucil) cholecalciferol (vitamin D3) 25 25 mcg PO DAILY 02/01/23 02/08/23 History mcg (1,000 unit) tablet (Vitamin D3) Patient hx anesthesia problems: none Family hx anesthesia problems: none Results Review: All pre-operative results and documents have been reviewed as part of the pre-operative evaluation. PMFSH Past Medical History Medical History Anxiety Depression Hyperlipidemia Hypothyroidism PCOS (polycystic ovarian syndrome) Status post hysteroscopy Vaginal delivery x3 Surgical History Surgical History H/O hemorrhoidectomy 09/07/22 History of ankle surgery , pins History of dilation and curettage 10/23/20 History of endometrial ablation 10/23/20 Family History Family History Father Alcoholism Hypertension Depression Mother Hypertension Anxiety Sibling Anxiety brother Thyroid disorder sister Grandparent Breast cancer Heart disease Hypertension Son HELLP syndrome Social History Social History Smoking packs per day: 0.5 Smoking cigarettes per day: 10.0 Years smoked: 5 Smoking pack-years: 2.50 Smoking status: Former smoker Tobacco type: cigarettes Smoking end date: 06/19/10 Alcohol intake: current Drinks per week: 1 Substance use: current Substance use type: marijuana Other substance usage details: 3-4 DAYS PER WEEK Last use: 2006 Living arrangements: with family Occupation/Education: occupation 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
[2023-02-08] MEDS: ceFAZolin 3 GM/D5W 100 ML 100 ML IVPB (10:20)
[2023-02-08] MEDS: BUPIVACAINE/EPINEPHRINE 0.5% 50 ML VIAL 10 ML INFILTRATE (10:44)
--- NOTE | 2023-02-08 11:35 | P.OP_ITS ---
Procedure Note - Detailed Date of Procedure 02/08/23 Pre-op Diagnosis rectal bleeding, internal & external hemorrhoids Post-op Diagnosis Same Procedure Performed Proctosigmoidoscopy to 20 cm, excision right anterior complex internal and e xternal hemorrhoids, rubber-band ligation right posterior internal hemorrhoid Surgeon Manjeet Rider MD Sweeper Brush Maker Machine Alysha Rodrigues [facility] Anesthesia General and Local (0.5% Marcaine with epinephrine) Indications Patient is a 42-year-old woman who had bleeding and prolapsing internal and external hemorrhoids. In August of this year, 4 months ago, she underwent excision of the left lateral and right posterior complex of internal and external hemorrhoids. She had rubber-band ligation of the right anterior internal hemorrhoid. She has had difficulty following her surgery. She has had intermittent pain with persistent rectal bleeding. The pain has eventually gone away but she still was having rectal bleeding. At her last office visit, she had what appeared to be substantial right anterior complex of internal and external hemorrhoids. She is taken to surgery now for proctosigmoidoscopy and hemorrhoidectomy most likely the right anterior complex. Findings Proctosigmoidoscopy to 20 cm was negative. She did have prolapsed internal as well as external hemorrhoids in the right anterior complex. There were also some bulky internal hemorrhoids at the right posterior complex. Left lateral complex looked good. Description of Procedure Patient was taken to surgery and induced into general anesthesia. She was then turned and placed in prone dominic-knife position. The buttocks were taped apart. Prep and drape was carried out. I initially inspected the anal canal using a small Hill-Agustin anoscope. Findings were as above. I then used the proctoscope and performed proctosigmoidoscopy to 20 cm. No polyps or additional lesions that could be a source of bleeding were noted. I then infiltrated local using 0.5% Marcaine with epinephrine. 20 cc deep subdermal in 20 cc intra sphincteric were infiltrated. Some additional local in the right anterior complex was low infiltrated as well. I then exposed the right anterior complex. The complex of internal and external hemorrhoids was excised. The wound was closed with running locking 3-0 chromic suture. I then reinspected the anal canal. There was still some substantial internal hemorrhoids at the right posterior complex. These were rubber-band ligated. Further review of the inguinal canal did not show any additional pathology. Rectum was dressed with Xeroform gauze, fluffs and tape. Patient was returned to a supine position, awakened and extubated. She was taken to recovery in good condition. Sponge needle counts were correct x2. Estimated Blood Loss -5 Drains No Packing No Pathology Yes (Right anterior complex internal and external hemorrhoids) Complications No immediate complications Condition Stable Disposition PACU [facility] Billing Surgery - Charge Forward: Surgery Billing (Excision single complex internal and external hemorrhoids, rubber-band ligation internal hemorrhoids.)
== END 2023-02-08 13:10 | disposition home or self-care (01) ==
PROVIDERS: PCP Family Medicine; Visit Provider Surgery
PROC: (CPT 46255; principal; 2023-02-08 10:00)
DX: K64.8 Other hemorrhoids (principal); K64.4 Residual hemorrhoidal skin tags; E03.9 Hypothyroidism, unspecified; E78.5 Hyperlipidemia, unspecified; E28.2 Polycystic ovarian syndrome; F41.9 Anxiety disorder, unspecified; F32.A Depression, unspecified; Z87.891 Personal history of nicotine dependence; F12.90 Cannabis use, unspecified, uncomplicated; E66.9 Obesity, unspecified; Z68.38 Body mass index [BMI] 38.0-38.9, adult
CPT/HCPCS: 46255; 45330; 88304; A9270; C9290; J0330; J0690; J1100; J1885; J2250; J2405; J2704; J3010; J7120

== ENCOUNTER 2023-04-21 10:40 | Outpatient (CLI) | payer OTHER, SELFPAY ==
--- NOTE | ~2023-04-21 | XR_ITS ---
EXAMINATION: XR abdomen obstructive series DATE: 04/21/2023 11:08 INDICATION: Constipation TECHNIQUE: Supine and upright views of the abdomen. FINDINGS: No prior studies for comparison. The visualized lung parenchyma is normal.. There is a nonobstructive bowel gas pattern. Gas and stool are seen throughout the colon to the level of the rectum. There is no free air. IMPRESSION: 1. No acute abdominal abnormality. Reviewed, dictated and finalized at location A.
== END 2023-04-21 10:41 | disposition home or self-care (01) ==
LOC: CHSIMG 10:44
PROVIDERS: Visit Provider Surgery
DX: K59.00 Constipation, unspecified (principal)
CPT/HCPCS: 74019

== ENCOUNTER 2023-07-11 00:08 | Day surgery (SDC) | payer OTHER, SELFPAY ==
[2023-06-21 13:09] VITALS: BMI 38.8
--- NOTE | 2023-07-07 13:18 | SUR.PREOP ---
Patient called regarding upcoming procedure. Reviewed preop instructions, appointment times, and procedure prep.
[2023-07-11 08:43] VITALS: BP 140/87; PULSE 98; RESP 18; TEMP 35.9; O2SAT 98
[2023-07-11] MEDS: LACTATED RINGERS 1,000 ML 150 ML IV CONT (08:51)
--- NOTE | 2023-07-11 09:01 | WPDANESEPPF ---
Anes - Initial Pre Proc Eval Procedure: Operation Date: 07/11/23 10:00 Proposed Procedures p Colonoscopy - Dean Mora MD Date/Time: 07/11/23 09:01 Surgeon: Dean Mora MD Pre Op Diagnosis: change in bowel habits,constipation Patient Data Age: 43 Gender: F Height: 1.78 m Weight: 123.7 kg Last Vital Signs Temp 96.7 F L 07/11/23 08:43 Pulse 98 07/11/23 08:43 Resp 18 07/11/23 08:43 BP 140/87 07/11/23 08:43 Pulse Ox 98 07/11/23 08:43 O2 Del Method Room Air 07/11/23 08:43 Allergies Allergy/AdvReac Type Severity Reaction Status Date / Time amoxicillin [From Augmentin] AdvReac Diarrhea Verified 07/11/23 08:41 clavulanic acid AdvReac Diarrhea Verified 07/11/23 08:41 [From Augmentin] duloxetine [From Cymbalta] AdvReac Dizziness Verified 07/11/23 08:41 Home Medications Medication Instructions Recorded Confirmed Type atorvastatin 80 mg tablet 80 mg PO DAILY 09/30/20 07/11/23 History bupropion HCl 150 mg 24 hr tablet, 150 mg PO DAILY 09/30/20 07/11/23 History extended release cetirizine 10 mg capsule (Allergy 10 mg PO DAILY PRN Allergy Symptoms 09/30/20 07/11/23 History Relief (cetirizine)) escitalopram oxalate 20 mg tablet 20 mg PO HS 09/30/20 07/11/23 History fluticasone propionate 50 1 spray intranasal DAILY PRN 09/30/20 07/11/23 History mcg/actuation nasal ALLERGIES spray,suspension (Allergy Relief (fluticasone)) levothyroxine 75 mcg capsule 75 mcg PO DAILY 09/30/20 07/11/23 History multivitamin 1 tablet PO DAILY 09/30/20 07/11/23 History atomoxetine 40 mg capsule 40 mg PO BID 05/15/23 07/11/23 History psyllium husk 3.4 gram/5.4 gram 1 tbsp PO DAILY 06/21/23 07/11/23 History oral powder (Metamucil) linaclotide 145 mcg capsule 145 mcg PO QAM #90 caps 06/22/23 07/11/23 Rx (Linzess) Patient hx anesthesia problems: none Family hx anesthesia problems: none Results Review: All pre-operative results and documents have been reviewed as part of the pre-operative evaluation. [facility] Past Medical History Medical History (Updated 07/07/23 @ 09:14 by Daniela Luna, ARIANE) Anxiety Change in bowel habits Depression Hyperlipidemia Hypothyroidism PCOS (polycystic ovarian syndrome) Pelvic floor dysfunction in female Status post hysteroscopy Vaginal delivery x3 Surgical History Surgical History H/O hemorrhoidectomy Proctosigmoidoscopy to 20 cm, excision right anterior complex internal and external hemorrhoids, rubber-band ligation right posterior internal hemorrhoid History of ankle surgery , pins History of dilation and curettage 10/23/20 History of endometrial ablation 10/23/20 Family History Family History Father Alcoholism Hypertension Depression Mother Hypertension Anxiety Sibling Anxiety brother Thyroid disorder sister Grandparent Breast cancer Heart disease Hypertension Son HELLP syndrome Social History Social History Smoking packs per day: 0.5 Smoking cigarettes per day: 10.0 Years smoked: 5 Smoking pack-years: 2.50 Smoking status: Never smoker Tobacco type: cigarettes Smoking end date: 06/19/10 Alcohol intake: current Drinks per week: 2 Substance use: current Substance use type: marijuana Other substance usage details: smoke marijuana daily Last use: 2006 Living arrangements: with family Occupation/Education: occupation Additional occupation/education comments: [employer] Gender identity (if verbalized by the patient): Female Spiritual care concerns: No Anes - Eval Final PreProcedure Day of Procedure 07/11/23 09:01 Patient weight: morbidly obese Heart: regular rate and rhythm Lungs: clear to auscultation Airway: Mallampati scale class II Neurological: alert and oriente
--- NOTE | 2023-07-11 09:47 | WPDHPUPDATE1 ---
History and Physical Update Update Date/Time: 07/11/23 09:47 History and Physical has been reviewed, including an updated exam of the patient. There are NO changes in the patient's condition. Risks, benefits, and alternatives have been discussed and questions answered. Patient agrees to proceed with procedure.
[2023-07-11 10:12] VITALS: BP 103/51; PULSE 86; RESP 19; O2SAT 98
[2023-07-11 10:22] VITALS: BP 99/55; PULSE 77; RESP 17; O2SAT 98
[2023-07-11 10:32] VITALS: BP 101/50; PULSE 76; RESP 13; O2SAT 100
== END 2023-07-11 10:33 | disposition home or self-care (01) ==
PROVIDERS: Visit Provider Internal Medicine Gastroenterology
PROC: 0DJD8ZZ Inspection of Lower Intestinal Tract, Via Natural or Artificial Opening Endoscopic (ICD-10-PCS; CPT 45378; principal; 2023-07-11 10:00)
DX: Z12.11 Encounter for screening for malignant neoplasm of colon (principal); K57.30 Diverticulosis of large intestine without perforation or abscess without bleeding; K59.00 Constipation, unspecified; F41.9 Anxiety disorder, unspecified; F32.A Depression, unspecified; E78.5 Hyperlipidemia, unspecified; E03.9 Hypothyroidism, unspecified; E28.2 Polycystic ovarian syndrome; F12.90 Cannabis use, unspecified, uncomplicated; F17.210 Nicotine dependence, cigarettes, uncomplicated; E66.01 Morbid (severe) obesity due to excess calories; Z68.39 Body mass index [BMI] 39.0-39.9, adult; Z82.49 Family history of ischemic heart disease and other diseases of the circulatory system; Z80.3 Family history of malignant neoplasm of breast
CPT/HCPCS: 45378; J2704; J7120

== ENCOUNTER 2023-07-14 11:15 | Outpatient (RCR) | payer OTHER, SELFPAY ==
--- NOTE | 2023-05-26 09:49 | OPREHPOC ---
Outpatient Therapy Plan of Care This is a Multidisciplinary Plan of Care that may contain components documented by all disciplines (PT, OT, and ST.) PT Problem 1 PT Problem #1 Knowledge Deficit PT Goal 1 Goal 1. Patient will perform independent HEP 2. Patient will verbalize appropriate fiber intake Target Visit 5 PT Problem 2 PT Problem #2 Pain PT Goal 1 Goal 1. Patient will report pain no higher than 1/10 with BM Target Visit 5 PT Problem 3 PT Problem #3 Impaired Functional ADLs PT Goal 1 Goal 1. Patient will report no need to modify schedule around pain or constipation 2. Patient will have BM 5/7 days Target Visit 5 PT Problem 4 PT Problem #4 Impaired Strength PT Goal 1 Goal 1. Improve pelvic floor strength to 4/5 Target Visit 5
--- NOTE | 2023-05-26 09:49 | PTOPEVAL1 ---
Assessment and note entered by Ashly Marquez DPT Evaluation Information Assessment Status Evaluation Subjective Information Pt reports previous hemorrhoid issues and 2 hemorrhoidectomies this year. Reports some constipation over the last year, every 2-3 days at times but with frequent straining and incomplete emptying. Sometimes has to push on her perineum. Urinates 7-10 times a day and normally 1 time at night. Urinary incontinence at times on the way to the toilet, may happen 1-2 times a day if she is also having a lot of bowel issues. Can hold urge to void 10-15 minutes. Sometimes feel a sense of urgency. Denies pain with urination. Currently BM daily, has had some pain if not using mineral oil or linzess. Has had bleeding related to hemorrhoids. Denies fecal incontinence. Mild, intermittent pelvic pain in the past. Pt has been 3 times, 3 deliveries. All vaginal, HELLP with her first and tearing. Uterine ablation in October 2020. No other pertinent PATTERN RULER or b/b history. Patient goal: decrease pain and bleeding with BM, decrease feeling of incomplete emptying. Reports feeling frustrated due to symptoms. Highest pain recently 6/10 and lowest 0/10. 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 Diet: usually water, 1-2 cups of coffee in the morning. Hot coffee does seem to stimulate bowels more, but usually drinks iced coffee. States she does not often eat out for lunch and dinner, does for breakfast more often. Eats meat, dairy, grains , fruits and vegetables. Takes metamucil 1 time a day. Started taking linzess this week. Will have colonscopy in June. Reported Pain Level Pain Score 0: Self Report Assessment PT Clinical Summary The patient is presenting to skilled therapy with a history of constipation. She presents with decreased core strength, decreased pelvic floor strength, and possible pelvic organ prolapse which are contributing to her pain and symptoms. She will highly benefit from therapy to address these impairments in order to reduce pain and improve daily function. Plan of Care Interventions
--- NOTE | 2023-06-23 13:08 | OPREHPOC ---
Outpatient Therapy Plan of Care This is a Multidisciplinary Plan of Care that may contain components documented by all disciplines (PT, OT, and ST.) PT Problem 1 PT Problem #1 Knowledge Deficit PT Goal 1 Goal 1. Patient will perform independent HEP 2. Patient will verbalize appropriate fiber intake Target Visit 11 Progress Partially Met PT Problem 2 PT Problem #2 Pain PT Goal 1 Goal 1. Patient will report pain no higher than 1/10 with BM Target Visit 11 Progress Partially Met PT Problem 3 PT Problem #3 Impaired Functional ADLs PT Goal 1 Goal 1. Patient will report no need to modify schedule around pain or constipation 2. Patient will have BM 5/7 days Target Visit 11 Progress Partially Met PT Problem 4 PT Problem #4 Impaired Strength PT Goal 1 Goal 1. Improve pelvic floor strength to 4/5 Target Visit 11 Progress Not Met
--- NOTE | 2023-06-23 13:08 | PTOPPROG ---
Assessment and note entered by Ashly Marquez DPT Evaluation Information Assessment Status Progress Subjective Information Pt reports she is feeling some improvements with therapy and feels like she has less straining. Not needing to bear down as much to have a BM. Daily BM, no bleeding or pain for 2 weeks. Reports urinary incontinence is not happening as often and seems to be a smaller volume when she does notice it. Assessment PT Clinical Summary The patient has made some progress in therapy overall. She reports decreased urinary incontinence, improvements with ability to fully evacuate BM and less pain/bleeding. She demonstrates improved core strength. Due to her progress plan to continue therapy to further address pain and symptoms in order to return to full function. Plan of Care Interventions Electrical Stimulation,Hot Pack/Cold Pack,Manual Therapy,Neuro Re-education,Patient/Caregiver Education,Therapeutic Activities,Therapeutic Exercise PT Services Indicated Yes Treatment Frequency and 1 time a week for 3-6 visits Duration These treatments will address the objective and functional deficits as defined above. The patient will be advanced safely and appropriately in order for the patient to progress towards his/her prior level of function. Additional exercises will be introduced and as well as a comprehensive home exercise program upon discharge, if needed, ?to ensure carryover of functional gains achieved in the clinic. This treatment plan has been reviewed and agreement upon by the patient.
--- NOTE | 2023-08-21 10:31 | PTOPDC ---
Assessment and note entered by Ashly Marquez DPT Evaluation Information Assessment Status Discharge - Pt Not Present Subjective Information - Assessment PT Clinical Summary Therapist called patient to follow up as last scheduled and attended visit was 07/14/23. Reported she has been feeling good. Plan to discharge patient today and will need a new script to resume therapy in the future. Plan of Care PT Services Indicated No
== END 2023-08-21 11:04 | disposition home or self-care (01) ==
LOC: ANHPT 11:15
PROVIDERS: Visit Provider Nurse Practitioner
DX: K59.00 Constipation, unspecified (principal); Z98.890 Other specified postprocedural states
CPT/HCPCS: 97014; 97110; 97112; 97140; 97161; 97530; G0283